=== PATIENT | female | born 1955 | race Two or more races ===

== ENCOUNTER → 2022-12-13 | Outpatient (CLI) | payer OTHER ==
[2022-12-13 09:44] LABS: Basophils # (auto) 0.1 10 ^3/uL (0-0.2); Basophils % (auto) 1.2 % (0.0-2.0); Eosinophils # (auto) 0.4 10 ^3/uL (0-0.8); Eosinophils % (auto) 4.6 % (0.0-7.0); Hematocrit 42.3 % (36.0-46.0); Hemoglobin 14.6 g/dL (12.2-16.2); Lymphocytes % (auto) 34.3 % (10.0-50.0); Mean Corpuscular Hemoglobin 31.6 pg (28.0-32.0); Mean Corpuscular Hgb Conc. 34.6 g/dL (32.0-36.0); Mean Corpuscular Volume 91.3 fL (80.0-100.0); Monocytes # (auto) 0.5 10 ^3/uL (0-1.3); Neutrophils # (auto) 4.7 10 ^3/uL (1.6-8.6); Neutrophils % (auto) 53.9 % (37.0-80.0); Nucleated Red Blood Cells % 0.2 %; Red Blood Cells 4.63 10^6/uL (4.0-5.20); Red Cell Distribution Width 12.6 % (11.8-14.3); White Blood Cell 8.7 10^3/uL (4.4-10.8)
[2022-12-13 09:51] LABS: Urine Bacteria FEW /hpf (None Seen); Urine Blood Negative /uL (Negative); Urine Mucus FEW (None Seen); Urine Specific Gravity 1.026 (1.001-1.035); Urine WBC 4 /hpf (0 - 5)
[2022-12-13 10:45] LABS: Potassium 4.2 mmol/L (3.5-5.1)
[2022-12-13 10:56] LABS: Albumin 3.9 g/dL (3.4-5.0); BUN/Creatinine Ratio 19.8 (10.0-20.0); Bilirubin, Total 0.7 mg/dL (0.2-1.0); Calcium 9.9 mg/dL (8.5-10.1); Total Protein 7.8 g/dL (6.4-8.2)
== END | disposition home or self-care (01) ==
LOC: LAB 09:23
PROVIDERS: ATTEND Student in an Organized Health Care Education/Training Program
DX: Z12.11 Encounter for screening for malignant neoplasm of colon (principal); E11.9 Type 2 diabetes mellitus without complications; I10 Essential (primary) hypertension; E03.8 Other specified hypothyroidism
CPT/HCPCS: 36415; 80053; 80061; 81001; 83036; 84439; 84443; 85025

== ENCOUNTER → 2023-03-27 | Outpatient (CLI) | payer OTHER ==
[2023-03-27 12:37] LABS: Alanine Aminotransferase 79 U/L (7-40); Albumin 4.7 g/dL (3.2-4.8); Alkaline Phosphatase 87 U/L (46-116); Anion Gap 6 (5-15); Aspartate Aminotransferase 39 U/L (13-40); BUN/Creatinine Ratio 13.6 (10.0-20.0); Blood Urea Nitrogen 11 mg/dL (9-23); Calcium 9.7 mg/dL (8.5-10.1); Carbon Dioxide 29 mmol/L (20-30); Chloride 107 mmol/L (98-107); Cholesterol 168 mg/dL (< 200); Glucose 157 mg/dL (74-106); LDL Cholesterol 101 mg/dL (< 100); Potassium 4.6 mmol/L (3.5-5.1); Sodium 142 mmol/L (136-145); Triglycerides 200 mg/dL (< 150)
[2023-03-27 12:38] LABS: Bilirubin, Total 0.6 mg/dL (0.2-1.0); HDL Cholesterol 36 mg/dL (40-59)
[2023-03-27 12:39] LABS: Total Protein 7.1 g/dL (5.7-8.2)
== END | disposition home or self-care (01) ==
LOC: LAB 11:34
DX: E78.5 Hyperlipidemia, unspecified (principal)
CPT/HCPCS: 36415; 80053; 80061; 84439; 84443

== ENCOUNTER → 2023-04-10 | Outpatient (CLI) | payer OTHER | END | disposition home or self-care (01) | LOC: XYW 13:28 | PROVIDERS: ATTEND Student in an Organized Health Care Education/Training Program | DX: I51.89 Other ill-defined heart diseases (principal); R07.9 Chest pain, unspecified | CPT/HCPCS: 93306 ==

== ENCOUNTER → 2023-05-22 | Outpatient (CLI) | payer OTHER ==
[~2023-05-22] VITALS: Ht 157.5 cm; Wt 70.3 kg
[~2023-05-22] MED LIST: ADENOSINE 59 MG in GIVE UN-DILUTED 0 ML IV ONE
== END | disposition home or self-care (01) ==
LOC: XYW 11:52
PROVIDERS: ATTEND Internal Medicine
DX: R07.9 Chest pain, unspecified (principal); E11.65 Type 2 diabetes mellitus with hyperglycemia; E78.5 Hyperlipidemia, unspecified
CPT/HCPCS: 78452; 93017; A9500; J0153

== ENCOUNTER → 2023-06-28 | Outpatient (CLI) | payer OTHER ==
[2023-06-28 12:35] LABS: Urine Epithelial Cast None Seen /hpf (<5)
[2023-06-28 12:43] LABS: Basophils # (auto) 0.1 10 ^3/uL (0-0.2); Basophils % (auto) 1.2 % (0.0-2.0); Eosinophils # (auto) 0.4 10 ^3/uL (0-0.8); Eosinophils % (auto) 5.2 % (0.0-7.0); Hemoglobin 14.5 g/dL (12.2-16.2); Lymphocytes # (auto) 2.5 10 ^3/uL (0.4-5.4); Lymphocytes % (auto) 33.1 % (10.0-50.0); Mean Corpuscular Hemoglobin 30.7 pg (28.0-32.0); Mean Corpuscular Hgb Conc. 33.8 g/dL (32.0-36.0); Mean Corpuscular Volume 90.7 fL (80.0-100.0); Monocytes # (auto) 0.5 10 ^3/uL (0-1.3); Monocytes % (auto) 6.5 % (0.0-12.0); Neutrophils # (auto) 4.1 10 ^3/uL (1.6-8.6); Nucleated Red Blood Cells % 0.1 %; Red Blood Cells 4.73 10^6/uL (4.0-5.20); Red Cell Distribution Width 12.8 % (11.8-14.3); White Blood Cell 7.6 10^3/uL (4.4-10.8)
[2023-06-28 12:59] LABS: Urine Bacteria FEW /hpf (None Seen); Urine Blood Negative /uL (Negative); Urine Clarity HAZY (Clear); Urine Color Yellow (Yellow); Urine Hyaline Cast FEW /lpf (0 - 2); Urine Mucus FEW (None Seen); Urine Protein, UAD TRACE (Negative); Urine Specific Gravity 1.024 (1.001-1.035); Urine WBC 10 /hpf (0 - 5)
[2023-06-28 13:09] LABS: Alanine Aminotransferase 79 U/L (7-40); Albumin 4.7 g/dL (3.2-4.8); Alkaline Phosphatase 78 U/L (46-116); Anion Gap 5 (5-15); Aspartate Aminotransferase 42 U/L (13-40); BUN/Creatinine Ratio 14.4 (10.0-20.0); Bilirubin, Total 0.9 mg/dL (0.2-1.0); Blood Urea Nitrogen 14 mg/dL (9-23); Calcium 10.1 mg/dL (8.5-10.1); Carbon Dioxide 29 mmol/L (20-30); Chloride 109 mmol/L (98-107); Cholesterol 180 mg/dL (< 200); Glucose 152 mg/dL (74-106); HDL Cholesterol 34 mg/dL (40-59); LDL Cholesterol 120 mg/dL (< 100); Potassium 4.7 mmol/L (3.5-5.1); Sodium 143 mmol/L (136-145); Triglycerides 183 mg/dL (< 150)
[2023-06-28 13:10] LABS: Total Protein 7.5 g/dL (5.7-8.2)
== END | disposition home or self-care (01) ==
LOC: LAB 12:23
DX: E11.9 Type 2 diabetes mellitus without complications (principal); I10 Essential (primary) hypertension; R79.89 Other specified abnormal findings of blood chemistry; E03.9 Hypothyroidism, unspecified
CPT/HCPCS: 36415; 80053; 80061; 81001; 82306; 83036; 84439; 84443; 85025

== ENCOUNTER → 2023-09-20 | Outpatient (CLI) | payer OTHER | END | disposition home or self-care (01) | LOC: LAB 14:52 | PROVIDERS: ATTEND Student in an Organized Health Care Education/Training Program | DX: Z12.11 Encounter for screening for malignant neoplasm of colon (principal); N39.0 Urinary tract infection, site not specified; E11.9 Type 2 diabetes mellitus without complications; I10 Essential (primary) hypertension; E03.9 Hypothyroidism, unspecified | CPT/HCPCS: 82274 ==

== ENCOUNTER 2023-12-31 16:59 | Emergency (ER) | payer OTHER ==
[~2023-12-31] VITALS: Ht 157.5 cm; Wt 69.7 kg
[2023-12-31 20:10] VITALS: BP 126/78; PULSE 62; RESP 16; TEMP 98.5; O2SAT 99
== END 2023-12-31 20:18 | disposition home or self-care (01) ==
LOC: ER 16:59
DX: R22.1 Localized swelling, mass and lump, neck (principal); E11.9 Type 2 diabetes mellitus without complications; I10 Essential (primary) hypertension; E03.9 Hypothyroidism, unspecified; Z88.2 Allergy status to sulfonamides; Z88.5 Allergy status to narcotic agent; Z90.49 Acquired absence of other specified parts of digestive tract
CPT/HCPCS: 76536

== ENCOUNTER → 2024-03-04 | Outpatient (CLI) | payer OTHER ==
[2024-03-04 13:54] LABS: Alanine Aminotransferase 53 U/L (7-40); Albumin 4.7 g/dL (3.2-4.8); Alkaline Phosphatase 82 U/L (46-116); Anion Gap 7 (5-15); Aspartate Aminotransferase 27 U/L (13-40); BUN/Creatinine Ratio 20.3 (10.0-20.0); Bilirubin, Total 0.7 mg/dL (0.2-1.0); Blood Urea Nitrogen 15 mg/dL (9-23); Carbon Dioxide 27 mmol/L (20-31); Chloride 108 mmol/L (98-107); Glucose 144 mg/dL (74-106); Potassium 4.5 mmol/L (3.5-5.1); Sodium 142 mmol/L (136-145); Total Protein 7.3 g/dL (5.7-8.2)
[2024-03-04 14:53] LABS: Basophils # (auto) 0.1 10 ^3/uL (0-0.2); Basophils % (auto) 0.8 % (0.0-2.0); Eosinophils # (auto) 0.7 10 ^3/uL (0-0.8); Eosinophils % (auto) 8.1 % (0.0-7.0); Hematocrit 41.6 % (36.0-46.0); Hemoglobin 14.8 g/dL (12.2-16.2); Lymphocytes # (auto) 2.9 10 ^3/uL (0.4-5.4); Lymphocytes % (auto) 33.6 % (10.0-50.0); Mean Corpuscular Hemoglobin 32.6 pg (28.0-32.0); Mean Corpuscular Hgb Conc. 35.6 g/dL (32.0-36.0); Mean Corpuscular Volume 91.6 fL (80.0-100.0); Monocytes # (auto) 0.5 10 ^3/uL (0-1.3); Monocytes % (auto) 5.9 % (0.0-12.0); Neutrophils # (auto) 4.4 10 ^3/uL (1.6-8.6); Neutrophils % (auto) 51.6 % (37.0-80.0); Nucleated Red Blood Cells % 0.1 %; Platelet Count (auto) 238 10^3/uL (140-450); Red Blood Cells 4.54 10^6/uL (4.0-5.20); Red Cell Distribution Width 13.2 % (11.8-14.3); White Blood Cell 8.5 10^3/uL (4.4-10.8)
[2024-03-04 15:42] LABS: Urine Bacteria MANY /hpf (None Seen); Urine Blood Negative /uL (Negative); Urine Clarity Turbid (Clear); Urine Color Yellow (Yellow); Urine Mucus FEW (None Seen); Urine Protein, UAD TRACE (Negative); Urine Specific Gravity 1.024 (1.001-1.035); Urine Urobilinogen Normal (Negative); Urine WBC 16 /hpf (0 - 5); Urine pH 5.5 (5.0-9.0)
== END | disposition home or self-care (01) ==
LOC: LAB 12:40
PROVIDERS: ATTEND Student in an Organized Health Care Education/Training Program
DX: I10 Essential (primary) hypertension (principal); E11.9 Type 2 diabetes mellitus without complications; E03.8 Other specified hypothyroidism
CPT/HCPCS: 36415; 80053; 81001; 83036; 84439; 84443; 85025

== ENCOUNTER → 2024-03-27 | Outpatient (CLI) | payer OTHER ==
[2024-03-27 15:37] LABS: Erythrocyte Sedimentation Rate 7 mm/hr (0-20)
[2024-03-28 08:06] LABS: Complement C3 165 mg/dL (82-167); Rheumatoid Arthritis Factor <10.0 IU/mL (<14.0)
[2024-03-28 11:07] LABS: Thyroid Peroxidase (TPO) Ab 33 IU/mL (0-34)
[2024-03-28 14:06] LABS: Anti-Nuclear Antibody Direct Negative (Negative); Anti-dsDNA Antibody <1 IU/mL (0-9); Antiscleroderma-70 Antibody <0.2 AI (0.0-0.9); RNP Antibody <0.2 AI (0.0-0.9); Sjogren's Anti-SS-A Antibody <0.2 AI (0.0-0.9); Sjogren's Anti-SS-B Antibody <0.2 AI (0.0-0.9); Smith Antibody <0.2 AI (0.0-0.9)
== END | disposition home or self-care (01) ==
LOC: LAB 14:44
PROVIDERS: ATTEND Student in an Organized Health Care Education/Training Program
DX: M25.50 Pain in unspecified joint (principal)
CPT/HCPCS: 36415; 84550; 85652; 86160; 86225; 86235; 86376; 86431

== ENCOUNTER → 2024-08-12 | Outpatient (CLI) | payer OTHER ==
[2024-08-12 12:22] LABS: Urine Bacteria None Seen /hpf (None Seen)
[2024-08-12 12:28] LABS: Basophils # (auto) 0.1 10 ^3/uL (0-0.2); Basophils % (auto) 1.2 % (0.0-2.0); Eosinophils # (auto) 0.5 10 ^3/uL (0-0.8); Eosinophils % (auto) 6.3 % (0.0-7.0); Hematocrit 44.7 % (36.0-46.0); Hemoglobin 14.9 g/dL (12.2-16.2); Lymphocytes # (auto) 2.7 10 ^3/uL (0.4-5.4); Lymphocytes % (auto) 36.7 % (10.0-50.0); Mean Corpuscular Hemoglobin 30.9 pg (28.0-32.0); Mean Corpuscular Hgb Conc. 33.3 g/dL (32.0-36.0); Monocytes # (auto) 0.4 10 ^3/uL (0-1.3); Monocytes % (auto) 6.2 % (0.0-12.0); Neutrophils # (auto) 3.6 10 ^3/uL (1.6-8.6); Neutrophils % (auto) 49.6 % (37.0-80.0); Platelet Count (auto) 260 10^3/uL (140-450); Red Blood Cells 4.81 10^6/uL (4.0-5.20); Red Cell Distribution Width 12.5 % (11.8-14.3); White Blood Cell 7.3 10^3/uL (4.4-10.8)
[2024-08-12 12:48] LABS: Urine Blood Negative /uL (Negative); Urine Clarity Clear (Clear); Urine Color Yellow (Yellow); Urine Mucus FEW (None Seen); Urine Protein, UAD Negative (Negative); Urine Specific Gravity 1.018 (1.001-1.035); Urine Squamous Epithelial Cell FEW /hpf (<5); Urine Urobilinogen Normal (Negative); Urine WBC 2 /HPF (0-5)
[2024-08-12 12:53] LABS: Alkaline Phosphatase 69 U/L (46-116); Anion Gap 8 (5-15); Aspartate Aminotransferase 35 U/L (13-40); BUN/Creatinine Ratio 13.6 (10.0-20.0); Blood Urea Nitrogen 12 mg/dL (9-23); Calcium 10.1 mg/dL (8.7-10.4); Carbon Dioxide 27 mmol/L (20-31); Potassium 4.7 mmol/L (3.5-5.1); Sodium 142 mmol/L (136-145); Total Protein 7.5 g/dL (5.7-8.2)
[2024-08-12 12:54] LABS: Bilirubin, Total 0.7 mg/dL (0.2-1.0)
[2024-08-12 12:56] LABS: Alanine Aminotransferase 53 U/L (7-40); Albumin 4.9 g/dL (3.2-4.8); Chloride 107 mmol/L (98-107); Cholesterol 212 mg/dL (< 200); Glucose 142 mg/dL (74-106); HDL Cholesterol 35 mg/dL (40-59); LDL Cholesterol 151 mg/dL (< 100); Triglycerides 189 mg/dL (< 150)
[2024-08-12 13:08] LABS: Creatinine, Urine 150.89 mg/dL (30.0-125.0)
== END | disposition home or self-care (01) ==
LOC: LAB 12:09
PROVIDERS: ATTEND Student in an Organized Health Care Education/Training Program
DX: Z12.11 Encounter for screening for malignant neoplasm of colon (principal); I10 Essential (primary) hypertension; E11.9 Type 2 diabetes mellitus without complications
CPT/HCPCS: 36415; 80053; 80061; 81001; 82043; 82570; 83036; 84443; 85025

== ENCOUNTER → 2025-01-16 | Outpatient (CLI) | payer OTHER ==
[2025-01-16 15:28] LABS: Hematocrit 46.3 % (36.0-46.0); Hemoglobin 16.1 g/dL (12.2-16.2); Mean Corpuscular Hemoglobin 31.3 pg (28.0-32.0); Mean Corpuscular Volume 89.9 fL (80.0-100.0); Nucleated Red Blood Cells % 0.2 %
[2025-01-16 15:30] LABS: Urine Budding Yeast FEW /hpf (None Seen); Urine Protein, UAD TRACE (Negative)
[2025-01-16 15:50] LABS: Alkaline Phosphatase 89 U/L (46-116); Anion Gap 8 (5-15); BUN/Creatinine Ratio 11.0 (10.0-20.0); Bilirubin, Total 1.0 mg/dL (0.2-1.0); Blood Urea Nitrogen 10 mg/dL (9-23); Calcium 9.9 mg/dL (8.7-10.4); Carbon Dioxide 29 mmol/L (20-31); Chloride 105 mmol/L (98-107); Potassium 5.0 mmol/L (3.5-5.1); Sodium 142 mmol/L (136-145); Total Protein 7.4 g/dL (5.7-8.2)
[2025-01-16 15:53] LABS: Alanine Aminotransferase 63 U/L (7-40); Albumin 4.9 g/dL (3.2-4.8); Cholesterol 234 mg/dL (< 200); Glucose 124 mg/dL (74-106); HDL Cholesterol 30 mg/dL (40-59); Triglycerides 277 mg/dL (< 150)
== END | disposition home or self-care (01) ==
LOC: LAB 15:05
PROVIDERS: ATTEND Student in an Organized Health Care Education/Training Program
DX: I10 Essential (primary) hypertension (principal); E11.9 Type 2 diabetes mellitus without complications; E03.8 Other specified hypothyroidism; Z12.11 Encounter for screening for malignant neoplasm of colon
CPT/HCPCS: 36415; 80053; 80061; 81001; 83036; 84439; 84443; 85025

== ENCOUNTER 2025-01-27 14:51 | Outpatient (CLI) | payer OTHER ==
[2025-01-27 15:15] LABS: Urine Protein, UAD TRACE (Negative)
== END 2025-01-27 17:00 | disposition home or self-care (01) ==
LOC: LAB 14:51
PROVIDERS: ATTEND Nurse Practitioner Family
DX: N39.0 Urinary tract infection, site not specified (principal)
CPT/HCPCS: 81001; 87086

== ENCOUNTER 2025-02-13 13:37 | Inpatient (IN) | payer OTHER ==
[~2025-02-13] VITALS: Ht 157.5 cm; Wt 68.8 kg
--- NOTE | 2025-02-13 14:27 | ED.PDOC ---
General HPI Comments 69 y.o female presents to the ED for a chief complaint of back pain radiating to bilateral flank region that started a couple weeks ago. Patient reports 2weeks ago she was seen at the ER for pain, states she was given pain medication via IM route and tested for a UTI via UA but tested negative. Patient continued to have pain despite medication, states it worsens with exertion, bending, and twisting. She mentioned 2 weeks ago did have hematuria and dysuria but has seen resolved. She denies any fever, chills, nausea, vomiting, abdominal pain. Chief Complaint: Flank Pain Time Seen by MD: 14:09 Reviewed notes: Nurses Notes, Medications, Allergies Allergies: Coded Allergies: Sulfa Antibiotics (Verified Allergy, Mild, 05/22/23) Uncoded Allergies: Codiene (Allergy, Mild, 05/22/23) Information Source: Patient Mode of Arrival: Ambulatory Severity: Moderate Timing: Weeks Duration: Since onset Onset: Spontaneous Symptoms: None History of: None Location: (R) Flank, (L)Flank associated signs and symptoms: Flank Pain, Back Pain Past Medical History PAST MEDICAL HISTORY: DM, HTN, Thyroid Surgical History: Appendectomy, Cholecystectomy Family History Family History: Reviewed,noncontributory to illness, No family hx of Cancer, No family hx of DM, No family hx of Heart luther, No family hx of HTN, No family hx ofKidney luther, No family hx of Liver luther, No family hx of Lung luther, No family hx of Stroke Social History Smoker: Non-Smoker Alcohol: Denies ETOH Use Drugs: Denies Drug Use Lives In: Home Constitutional: denies: chills, diaphoresis, fatigue, fever, malaise, sweats, weakness, others EENTM: denies: blurred vision, double vision, ear bleeding, ear discharge, ear drainage, ear pain, ear ringing, eye pain, eye redness, hearing loss, mouth pain, mouth swelling, nasal discharge, nose bleeding, nose congestion, nose pain, photophobia, tearing, throat pain, throat swelling, voice changes, others Respiratory: denies: cough, hemoptysis, orthopnea, SOB at rest, shortness of breath, SOB with excertion, stridor, wheezing, others Cardiovascular: denies: chest pain, dizzy spells, diaphoresis, Dyspnea on exertion, edema, irregular heart beat, left arm pain, lightheadedness, palpitations, PND, syncope, others Gastrointestinal: denies: abdomen distended, abdominal pain, blood streaked bowels, constipated, diarrhea, dysphagia, difficulty swallowing, hematemesis, melena, nausea, poor appetite, poor fluid intake, rectal bleeding, rectal pain, vomiting, others Genitourinary: reports: flank pain; denies: abnormal vagina bleeding, burning, dyspareunia, dysuria, frequency, hematuria, incontinence, pain, , vagina discharge, urgency, others Neurological: denies: dizziness, fainting, headache, left sided numbness, left sided weakness, numbness, paresthesia, pre-existing deficit, right sided numbness, right sided weakness, seizure, speech problems, tingling, tremors, weakness, others Musculoskeletal: reports: back pain; denies: gout, joint pain, joint swelling, muscle pain, muscle stiffness, neck pain, others Integumetry: denies: bruises, change in color, change in hair/nails, dryness, laceration, lesions, lumps, rash, wounds, others Allergic/Immunocompromised: denies: Difficulty Healing, Frequent Infections, Hives, Itching, others Hematologic/Lymphatic: denies: anemia, blood clots, easy bleeding, easy bruising, swollen glands, others Endocrine: denies: excessive hunger, excessive sweating, excessive thirst, excessive urination, flushing, intolerance to cold, intolerance to heat, unexplained weight gain, unexplained weight loss, others Psychiatric: denies: anxiety, bipolar disorder, depression, hopeless, panic disorder, schizophrenia, sleepless, suicidal, others All Other Systems: Reviewed and Negative Physical Exam General Appearance: Moderate Distress, Normal HEENT: Normal ENT Inspection, Pharynx Normal, TMs Normal Neck: Full Range of Motion, Non-Tender, Normal, Normal Inspection Respiratory: Chest Non-Tender, Lungs Clear, No Accessory Muscle Use, No Respiratory Distress, Normal Breath Sounds Cardiovascular: No Edema, No JVD, No Murmur, No Gallop, Normal Peripheral Pulses, Regular Rate/Rhythm Breast Exam: Deferred Gastrointestinal: No Organomegaly, Non Tender, No Pulsatile Mass, Normal Bowel Sounds, Soft Genitalia: Deferred Pelvic: Deferred Rectal: Deferred Extremities: No calf tenderness, Normal capillary refill, Normal inspection, Normal range of motion, Non-tender, No pedal edema Musculoskeletal : Apperance: Normal Neurologic: Alert, drive in teller II-XII nml as Tested, No Motor Deficits, Normal Affect, Normal Mood, No Sensory Deficits Cerebellar Function: Normal Reflexes: Normal Skin: Dry, Normal Color, Warm Peripheral Pulses: 3+ Radial (R), 3+ Radial (L) Lymphatic: No Adenopathy Was a procedure done? Was a procedure done?: No Differential Diagnosis Kidney stone (Female): Musculoskeletal pain, Pancreatitis, Strain, Urinary obstruction X-Ray, Labs, Meds, VS Vital Signs Date Time Temp Pulse Resp B/P (MAP) Pulse Ox O2 Delivery O2 Flow Rate FiO2 02/13/25 13:41 97.7 73 13 110/64 95 97.7 Lab Test 02/13/25 15:06 02/13/25 14:13 Range/Units White Blood Count 13.0 H 4.4-10.8 10^3/uL Red Blood Count 4.75 4.0-5.20 10^6/uL Hemoglobin 14.7 12.2-16.2 g/dL Hematocrit 43.1 36.0-46.0 % Mean Corpuscular Volume 90.7 80.0-100.0 fL Mean Corpuscular Hemoglobin 30.9 28.0-32.0 pg Mean Corpuscular Hemoglobin Concent 34.1 32.0-36.0 g/dL Red Cell Distribution Width 13.1 11.8-14.3 % Platelet Count 266 140-450 10^3/uL Mean Platelet Volume 9.6 6.9-10.8 fL Neutrophils (%) (Auto) 61.9 37.0-80.0 % Lymphocytes (%) (Auto) 28.9 10.0-50.0 % Monocytes (%) (Auto) 6.3 0.0-12.0 % Eosinophils (%) (Auto) 1.5 0.0-7.0 % Basophils (%) (Auto) 1.4 0.0-2.0 % Neutrophils # (Auto) 8.1 1.6-8.6 10 ^3/uL Lymphocytes # (Auto) 3.8 0.4-5.4 10 ^3/uL Monocytes # (Auto) 0.8 0-1.3 10 ^3/uL Eosinophils # (Auto) 0.2 0-0.8 10 ^3/uL Basophils # (Auto) 0.2 0-0.2 10 ^3/uL Nucleated Red Blood Cells 0.2 % Sodium Level 144 136-145 mmol/L Potassium Level 4.9 3.5-5.1 mmol/L Chloride Level 107 98-107 mmol/L Carbon Dioxide Level 28 20-31 mmol/L Anion Gap 9 5-15 Blood Urea Nitrogen 17 9-23 mg/dL Creatinine 0.85 0.550-1.02 mg/dL Glomerular Filtration Rate Calc 75 >90 mL/min BUN/Creatinine Ratio 20.0 10.0-20.0 Serum Glucose 135 H 74-106 mg/dL Calcium Level 9.8 8.7-10.4 mg/dL Urine Color Yellow Yellow Urine Clarity Turbid H Clear Urine pH 5.5 5.0-9.0 Urine Specific [place] 1.023 1.001-1.035 Urine Protein Negative Negative Urine Ketones Negative Negative Urine Blood Negative Negative /uL Urine Nitrite Negative Negative Urine Bilirubin Negative Negative Urine Urobilinogen Normal Negative mg/dL Urine Leukocyte Esterase 2+ Negative /uL Urine RBC 4 0 - 4 /hpf Urine Microscopic WBC 19 H 0-5 /HPF Urine Squamous Epithelial Cells Many <5 /hpf Urine Bacteria Few H None Seen /hpf Urine Mucus Few None Seen Urine Glucose Normal Normal mg/dL Patient alert. Vitals stable. Answering all questions. Ambulating. No leg swelling. No calf tenderness. No shortness a breath. Urinalysis shows UTI. WBC slightly elevated. Was given prescription of Keflex antibiotic. Was told to follow up with her primary care physician. Was told to come back if there is any problem. Time of 1ST Reevaluation: 14:27 Reevaluation 1ST: Unchanged Patient Education/Counseling: Diagnosis, Treatment, Prognosis Family Education/Counseling: No Family Present SEPSIS Sepsis Screen Date sepsis recognized/suspect: Feb 13, 2025 Time Sepsis recognized/suspect: 1341 Recent Procedure: No On Antibiotic Therapy: No Respiratory Rate >20: No Heart Rate >90: No Temp<36 C (96.8 F) or >38.3 C: No SBP <90 or MAP <65 mmHG: No New Acute Mental Status Change: No Is the patient on CPAP, BIPAP,: No Physician Orders Ct Ab Pel Wo Con-No Oral Or Iv (02/13/25 14:43) Vital Signs Date Time Temp Pulse Resp B/P (MAP) Pulse Ox O2 Delivery O2 Flow Rate FiO2 02/13/25 13:41 97.7 73 13 110/64 95 97.7 Laboratory Tests Test 02/13/25 15:06 White Blood Count 13.0 10^3/uL (4.4-10.8) H Departure 1 Departure Time of Disposition: 18:40 Impression: Primary Impression: Urinary tract infection Qualified Codes: N30.00 - Acute cystitis without hematuria Disposition: ADMITTED INPATIENT Admit to: Med Surg Condition: Guarded e-Prescriptions Cephalexin (KEFLEX CAPSULE) 250 Mg Cp 250 MG PO QID for 7 Days, #28 BOTTLE Prov: FIORDALIZA MCFADDEN MD 02/13/25 Critical Care Note Critical Care Time?: No Stability Stability form required: No I personally scribed for FIORDALIZA MCFADDEN MD ([email or web address]) on 02/13/25 at 14:27. Electronically submitted by Fatemeh Robbins ([facility]). FIORDALIZA MCFADDEN MD Feb 13, 2025 14:27
[2025-02-13 15:17] LABS: Hematocrit 43.1 % (36.0-46.0); Hemoglobin 14.7 g/dL (12.2-16.2); Mean Corpuscular Hemoglobin 30.9 pg (28.0-32.0); Mean Corpuscular Volume 90.7 fL (80.0-100.0); Nucleated Red Blood Cells % 0.2 %
[2025-02-13 15:24] LABS: Potassium 4.9 mmol/L (3.5-5.1); Sodium 144 mmol/L (136-145)
[2025-02-13 15:25] LABS: Anion Gap 9 (5-15); Calcium 9.8 mg/dL (8.7-10.4); Carbon Dioxide 28 mmol/L (20-31)
[2025-02-13 15:25] LABS: Urine Protein, UAD Negative (Negative)
[2025-02-13 15:30] LABS: Chloride 107 mmol/L (98-107)
[2025-02-13 15:31] LABS: BUN/Creatinine Ratio 20.0 (10.0-20.0); Blood Urea Nitrogen 17 mg/dL (9-23); Glucose 135 mg/dL (74-106)
--- NOTE | 2025-02-13 15:51 | DVH ---
Indication: stone Technique: CT axial images of the abdomen and pelvis are obtained without contrast. Coronal and sagit eleazar reformats were obtained. Radiation Dose Information: CTDI volume is 10 mGy. Dose-length product is 557 mGy*cm Comparison: None FINDINGS: There is limited interpretation of the abdomen and pelvis without administration of intravenous contr ast. Lung bases demonstrate atelectasis. Adrenal glands, spleen, pancreas unremarkable in shape. Cholecystectomy liver unremarkable in shape. The kidneys demonstrate no hydronephrosis / nephrolithiasis. Stomach partially distended. Small bowel loops are normal in caliber. Colonic diverticula. Moderate to large volume stool within the colon. Appendix removed. Abdominal aortic atherosclerotic disease. Bladder partially distended. No free pelvic fluid. No ingui nal lymphadenopathy. Moderate thoracolumbar degenerative disc disease. IMPRESSION: Limited evaluation without contrast. No hydronephrosis/ nephrolithiasis. Cholecystectomy. Moderate to large volume stool within the colon. Colonic diverticular disease. Other findings as described.
[2025-02-13] MEDS ORDERED: CEPH250C PO (18:41)
--- NOTE | 2025-02-13 20:10 | DVHHP2 ---
History of Present Illness Reason for Visit: Complicated Cystitis History of Present Illness Patient is a 69 y.o female with a PMHx of DM2 and Dyslipidemia who presented to the ED for a chief complaint of back pain radiating to bilateral flank region with burning of urine that started a couple weeks ago. Patient was on Keflex at home with no improvement. Patient denies fevers, chills, SOB, or any other complaints. Past Medical History See HPI Review of Systems Constitutional: No: Fever, Chills, Sweats, Weakness, Malaise, Other Eyes: No: Pain, Vision change, Conjunctivae inflammation, Eyelid inflammation, Other, Redness ENT: No: Ear pain, Ear discharge, Nose pain, Nose discharge, Nose congestion, Mouth pain, Mouth swelling, Throat pain, Throat swelling, Other Respiratory: No: Cough, Dry, Shortness of breath, SOB with excertion, Wheezing, Hemoptysis, Pleuritic Pain, Sputum, Wheezing, Other Cardiovascular: No: Chest Pain, Palpitations, Orthopnea, Paroxysmal Noc. Dyspnea, Edema, Lt Headedness, Other Gastrointestinal: Nausea, Abdominal Pain Genitourinary: Dysuria Musculoskeletal: No: other, neck pain, shoulder pain, arm pain, back pain, hand pain, leg pain, foot pain Skin: No: Rash, Lesions, Jaundice, Bruising, Other Neurological: No: Weakness, Numbness, Incoordination, Change in speech, Confusion, Seizures, Other Allergies: Coded Allergies: Sulfa Antibiotics (Verified Allergy, Mild, 05/22/23) Uncoded Allergies: Codiene (Allergy, Mild, 05/22/23) Exam Vital Signs Vital Signs Date Time Temp Pulse Resp B/P (MAP) Pulse Ox O2 Delivery O2 Flow Rate FiO2 02/13/25 13:41 97.7 73 13 110/64 95 97.7 General Appearance: Alert, Oriented X3, Cooperative, No acute distress HEENT: Atraumatic Respiratory: Clear to auscultation Cardiovascular: Regular rate, Normal S1, Normal S2 Abdominal: Normal bowel sounds Extremities: No clubbing Psych/Mental Status: Mental status NL Labs/Xrays Labs Test 02/13/25 15:06 02/13/25 14:13 Range/Units White Blood Count 13.0 H 4.4-10.8 10^3/uL Red Blood Count 4.75 4.0-5.20 10^6/uL Hemoglobin 14.7 12.2-16.2 g/dL Hematocrit 43.1 36.0-46.0 % Mean Corpuscular Volume 90.7 80.0-100.0 fL Mean Corpuscular Hemoglobin 30.9 28.0-32.0 pg Mean Corpuscular Hemoglobin Concent 34.1 32.0-36.0 g/dL Red Cell Distribution Width 13.1 11.8-14.3 % Platelet Count 266 140-450 10^3/uL Mean Platelet Volume 9.6 6.9-10.8 fL Neutrophils (%) (Auto) 61.9 37.0-80.0 % Lymphocytes (%) (Auto) 28.9 10.0-50.0 % Monocytes (%) (Auto) 6.3 0.0-12.0 % Eosinophils (%) (Auto) 1.5 0.0-7.0 % Basophils (%) (Auto) 1.4 0.0-2.0 % Neutrophils # (Auto) 8.1 1.6-8.6 10 ^3/uL Lymphocytes # (Auto) 3.8 0.4-5.4 10 ^3/uL Monocytes # (Auto) 0.8 0-1.3 10 ^3/uL Eosinophils # (Auto) 0.2 0-0.8 10 ^3/uL Basophils # (Auto) 0.2 0-0.2 10 ^3/uL Nucleated Red Blood Cells 0.2 % Sodium Level 144 136-145 mmol/L Potassium Level 4.9 3.5-5.1 mmol/L Chloride Level 107 98-107 mmol/L Carbon Dioxide Level 28 20-31 mmol/L Anion Gap 9 5-15 Blood Urea Nitrogen 17 9-23 mg/dL Creatinine 0.85 0.550-1.02 mg/dL Glomerular Filtration Rate Calc 75 >90 mL/min BUN/Creatinine Ratio 20.0 10.0-20.0 Serum Glucose 135 H 74-106 mg/dL Calcium Level 9.8 8.7-10.4 mg/dL Urine Color Yellow Yellow Urine Clarity Turbid H Clear Urine pH 5.5 5.0-9.0 Urine Specific [place] 1.023 1.001-1.035 Urine Protein Negative Negative Urine Ketones Negative Negative Urine Blood Negative Negative /uL Urine Nitrite Negative Negative Urine Bilirubin Negative Negative Urine Urobilinogen Normal Negative mg/dL Urine Leukocyte Esterase 2+ Negative /uL Urine RBC 4 0 - 4 /hpf Urine Microscopic WBC 19 H 0-5 /HPF Urine Squamous Epithelial Cells Many <5 /hpf Urine Bacteria Few H None Seen /hpf Urine Mucus Few None Seen Urine Glucose Normal Normal mg/dL SEPSIS Sepsis Screen Date sepsis recognized/suspect: Feb 13, 2025 Time Sepsis recognized/suspect: 1340 Recent Procedure: No On Antibiotic Therapy: No Respiratory Rate >20: No Heart Rate >90: No Temp<36 C (96.8 F) or >38.3 C: No SBP <90 or MAP <65 mmHG: No New Acute Mental Status Change: No Is the patient on CPAP, BIPAP,: No Physician Orders Ct Ab Pel Wo Con-No Oral Or Iv (02/13/25 14:43) Lactulose Oral (02/13/25 20:15) Bisacodyl Ec Tablet (Dulcolax Ec Tablet) (02/13/25 20:15) Ceftriaxone Ivpb Rocephin (02/14/25 09:00) NS (02/13/25 20:15) Tamsulosin Hydrochloride (Flomax) (02/13/25 20:15) Admit (02/13/25 20:03) Code Status (02/13/25 20:03) Vital Signs .PER UNIT PROTOCOL (02/13/25 20:03) Review Orders With Adm. (02/13/25 20:03) Consistent Carb(Ccho)Diabetes (02/14/25 Breakfast) Lorazepam Tablet (Ativan Tablet) (02/13/25 20:15) Alum & Mag Hydrox-Simethicone (Maalox Pl (02/13/25 20:15) Acetaminophen Tablet (Tylenol Tablet) (02/13/25 20:15) Notify Md Of Changes From Base (02/13/25 20:03) Advance Directive (02/13/25 20:03) Patient Condition (02/13/25 20:03) Allergies (02/13/25 20:03) Hydrocodone-Acet 5/325mg Tab (Pruden 5/32 (02/13/25 20:15) Hydromorphone Injection (Dilaudid Inject (02/13/25 20:15) Ondansetron Hcl (Zofran) (02/13/25 20:15) Glucose Blood (Accu-Chek Comfort Curve T (02/13/25 22:00) Bedtime Insulin Scale (02/13/25 22:00) Moderate Insulin Ss (02/14/25 07:00) Dextrose 50% Syringe (02/13/25 20:15) Complete Blood Count (02/14/25 04:00) Basic Metabolic Panel (02/14/25 04:00) Magnesium (02/14/25 04:00) Vital Signs Date Time Temp Pulse Resp B/P (MAP) Pulse Ox O2 Delivery O2 Flow Rate FiO2 02/13/25 13:41 97.7 73 13 110/64 95 97.7 Laboratory Tests Test 02/13/25 15:06 White Blood Count 13.0 10^3/uL (4.4-10.8) H Assessment/Plan Assessment/Plan # Complicated Cystitis - Rocephin - NS IVF # DM2 A1c 7.2 - SSI # Constipation - Lactulose and Dulcolax # Goals of care FULL CODE Plan discussed with: Patient My Orders Orders - JOSE CHIANG MD Procedure Category Date Status Time Lactulose Oral PHA 02/13/25 Verified 20:15 Bisacodyl Ec Tablet PHA 02/13/25 Verified (Dulcolax Ec Tablet) 20:15 Ceftriaxone Ivpb PHA 02/14/25 Verified Rocephin 09:00 NS PHA 02/13/25 Verified 20:15 Tamsulosin PHA 02/13/25 Verified Hydrochloride (Flomax) 20:15 Admit ADMIT 02/13/25 Verified 20:03 Code Status CODE 02/13/25 Verified 20:03 Vital Signs [facility] 02/13/25 Verified 20:03 Review Orders With [facility] 02/13/25 Verified Adm. 20:03 Consistent DIET 02/14/25 Verified Carb(Ccho)Diabetes Breakfast Lorazepam Tablet PHA 02/13/25 Verified (Ativan Tablet) 20:15 Alum & Mag PHA 02/13/25 Verified Hydrox-Simethicone 20:15 Acetaminophen Tablet PHA 02/13/25 Verified (Tylenol Tablet) 20:15 Notify Of Changes [facility] 02/13/25 Verified From Base 20:03 Advance Directive [facility] 02/13/25 Verified 20:03 Patient Condition ORDERS 02/13/25 Verified 20:03 Allergies [facility] 02/13/25 Verified 20:03 Hydrocodone-Acet PHA 02/13/25 Verified 5/325mg Tab (Pruden 20:15 Hydromorphone PHA 02/13/25 Verified Injection (Dilaudid 20:15 Ondansetron Hcl PHA 02/13/25 Verified (Zofran) 20:15 Glucose Blood PHA 02/13/25 Verified (Accu-Chek Comfort 22:00 Bedtime Insulin Scale PHA 02/13/25 Verified 22:00 Moderate Insulin Ss PHA 02/14/25 Verified 07:00 Dextrose 50% Syringe PHA 02/13/25 Verified 20:15 Complete Blood Count LAB 02/14/25 Verified 04:00 Basic Metabolic Panel LAB 02/14/25 Verified 04:00 Magnesium LAB 02/14/25 Verified 04:00 Date of Service: Feb 13, 2025 Billing Provider: JOSE CHIANG MD Common Visit Codes: 73995-NADPBIX INP/OBS CARE (HIGH) Secondary Visit Codes: 25830-[id number] CARE PLAN 30 MINUTES JOSE CHIANG MD Feb 13, 2025 20:10
[2025-02-13] MEDS ORDERED: HYDROmorphone HCL 2 MG/ML VL/or syr IV PRN (20:15)
[2025-02-13] MEDS: SODIUM CHLORIDE 0.9% 1,000 ML IV SCH (20:15)
[2025-02-13] MEDS ORDERED: LORazepam 0.5 MG TAB PO PRN (20:15)
[2025-02-13] MEDS ORDERED: ACETAMINOPHEN 325 MG TAB PO PRN (20:15)
[2025-02-13] MEDS: LACTULOSE 20Gm/30ML SOLN PO ONE (20:15)
[2025-02-13] MEDS: TAMSULOSIN HYDROCHLORIDE 0.4 MG CAP PO ONE (20:15)
[2025-02-13] MEDS: BISACODYL 5 MG EC TAB PO ONE (20:15)
[2025-02-13] MEDS ORDERED: ONDANSETRON HCL 4 MG/2 ML VIAL IV PRN (20:15)
[2025-02-13] MEDS ORDERED: DEXTROSE (50%) 50ML SYRG IV PRN (20:15)
[2025-02-13] MEDS ORDERED: MAALOX PLUS or MAALOX 30 ML PO PRN (20:15)
[2025-02-13 21:49] VITALS: PULSE 64; RESP 20; O2SAT 97
[2025-02-14] MEDS: InsuLIN REG 1unit/0.01ml Soln (100units/ml) SC SCH ×2 (00:33→06:04)
[2025-02-14] MEDS: ACCU-CHEK COMFORT CURVE STRIP VI SCH (00:34)
[2025-02-14 00:40] VITALS: BP 140/81; PULSE 67; RESP 18; TEMP 97.7; O2SAT 97
[2025-02-14 00:50] VITALS: PULSE 67; RESP 18; O2SAT 97
[2025-02-14] MEDS: HYDROcodone-ACET 5/325MG TAB PO PRN (01:11)
[2025-02-14 02:11] VITALS: BP 140/81; PULSE 67; RESP 18; TEMP 97.7; O2SAT 97
[2025-02-14 05:00] VITALS: BP 130/73; PULSE 55; RESP 17; TEMP 97.6; O2SAT 97
[2025-02-14 06:41] LABS: Hematocrit 40.4 % (36.0-46.0); Hemoglobin 14.1 g/dL (12.2-16.2); Mean Corpuscular Hemoglobin 31.5 pg (28.0-32.0); Mean Corpuscular Volume 90.2 fL (80.0-100.0); Nucleated Red Blood Cells % 0.0 %
[2025-02-14 06:53] LABS: Anion Gap 11 (5-15); Carbon Dioxide 27 mmol/L (20-31); Potassium 4.0 mmol/L (3.5-5.1)
[2025-02-14 06:54] LABS: Calcium 9.3 mg/dL (8.7-10.4)
[2025-02-14 07:00] LABS: BUN/Creatinine Ratio 19.7 (10.0-20.0); Blood Urea Nitrogen 13 mg/dL (9-23); Chloride 107 mmol/L (98-107); Glucose 89 mg/dL (74-106); Magnesium 2.1 mg/dL (1.6-2.6); Sodium 145 mmol/L (136-145)
[2025-02-14] MEDS ORDERED: IBUP1TAB5 PO (08:51)
[2025-02-14] MEDS ORDERED: PANT40TA2 PO (08:51)
[2025-02-14] MEDS ORDERED: NITR-87 PO (08:55)
--- NOTE | 2025-02-14 08:56 | DVHDSRES ---
Discharge Summary Date of Admission Resident Creating Document: ROCÍO ANTONIO RESIDENT Feb 13, 2025 at 20:03 Date of Discharge: Feb 14, 2025 Admitting Diagnosis Complicated cystitis Labs/Diagnostic Data: Laboratory Results Test 02/14/25 05:28 02/14/25 00:30 02/13/25 14:13 White Blood Count 10.3 10^3/uL (4.4-10.8) Red Blood Count 4.48 10^6/uL (4.0-5.20) Hemoglobin 14.1 g/dL (12.2-16.2) Hematocrit 40.4 % (36.0-46.0) Mean Corpuscular Volume 90.2 fL (80.0-100.0) Mean Corpuscular Hemoglobin 31.5 pg (28.0-32.0) Mean Corpuscular Hemoglobin Concent 35.0 g/dL (32.0-36.0) Red Cell Distribution Width 12.6 % (11.8-14.3) Platelet Count 228 10^3/uL (140-450) Mean Platelet Volume 9.8 fL (6.9-10.8) Neutrophils (%) (Auto) 55.1 % (37.0-80.0) Lymphocytes (%) (Auto) 35.5 % (10.0-50.0) Monocytes (%) (Auto) 6.4 % (0.0-12.0) Eosinophils (%) (Auto) 2.2 % (0.0-7.0) Basophils (%) (Auto) 0.8 % (0.0-2.0) Neutrophils # (Auto) 5.7 10 ^3/uL (1.6-8.6) Lymphocytes # (Auto) 3.6 10 ^3/uL (0.4-5.4) Monocytes # (Auto) 0.7 10 ^3/uL (0-1.3) Eosinophils # (Auto) 0.2 10 ^3/uL (0-0.8) Basophils # (Auto) 0.1 10 ^3/uL (0-0.2) Nucleated Red Blood Cells 0.0 % Sodium Level 145 mmol/L (136-145) Potassium Level 4.0 mmol/L (3.5-5.1) Chloride Level 107 mmol/L (98-107) Carbon Dioxide Level 27 mmol/L (20-31) Anion Gap 11 (5-15) Blood Urea Nitrogen 13 mg/dL (9-23) Creatinine 0.66 mg/dL (0.550-1.02) Glomerular Filtration Rate Calc 96 mL/min (>90) BUN/Creatinine Ratio 19.7 (10.0-20.0) Serum Glucose 89 mg/dL (74-106) Calcium Level 9.3 mg/dL (8.7-10.4) Magnesium Level 2.1 mg/dL (1.6-2.6) POC Glucose 285 mg/dl (70-106) Urine Color Yellow (Yellow) Urine Clarity Turbid (Clear) Urine pH 5.5 (5.0-9.0) Urine Specific [place] 1.023 (1.001-1.035) Urine Protein Negative (Negative) Urine Ketones Negative (Negative) Urine Blood Negative /uL (Negative) Urine Nitrite Negative (Negative) Urine Bilirubin Negative (Negative) Urine Urobilinogen Normal mg/dL (Negative) Urine Leukocyte Esterase 2+ /uL (Negative) Urine RBC 4 /hpf (0 - 4) Urine Microscopic WBC 19 /HPF (0-5) Urine Squamous Epithelial Cells Many /hpf (<5) Urine Bacteria Few /hpf (None Seen) Urine Mucus Few (None Seen) Urine Glucose Normal mg/dL (Normal) Other Laboratory Tests 02/14/25 05:28 Brief Hx & Hospital Course: The patient is a 69-year-old female with a past medical history of type 2 diabetes mellitus and dyslipidemia who presented to the emergency department with complaints of back pain radiating to the bilateral flank region, accompanied by burning with urination that began approximately two weeks ago. She had been taking Keflex at home without symptomatic improvement. She denied fever, chills, shortness of breath, or any other associated symptoms. Urinalysis was consistent with a urinary tract infection. The patient was treated in the ED with intravenous Rocephin and IV fluids, after which she reported feeling better. She is being discharged in stable condition with a prescription for Nitrofurantoin 100 mg to be taken twice daily for seven days. Follow-up with her primary care provider is recommended within 1 to 2 weeks. GENERAL: Not in acute distress. HEENT: EOMI, Moist mucous membranes. No scleral icterus. No cervical lymphadenopathy. LUNGS: Clear to auscultation bilaterally. No accessory muscle use. CARDIOVASCULAR: Regular rate and rhythm. No murmur. No JVD. ABDOMEN: Soft, nontender and nondistended. No palpable masses. EXTREMITIES: No edema. Nontender. SKIN: No rashes or lesions. Warm. NEUROLOGIC: Alert and oriented X3 Condition at Discharge: Stable Final Diagnosis/Problems List # acute Complicated Cystitis # DM2 A1c 7.2 # Constipation Discharge Disposition: Home SNF Discharge Will this Physician continue t: No Discharge Instruct/Medications Diet: Consistent carbohydrate Activity: No Restrictions, As Tolerated Follow Up/Referral: Follow up with primary care in 1-2 weeks Medications: Macrobid 100 mg b.i.d. x7 days Resume home medications Scheduled Nitrofurantoin Monohydrate Mac (Macrobid), 100 MG PO BID Pantoprazole Sodium Sesquihydr (Protonix), 40 MG PO DAILY Scheduled PRN Ibuprofen Micronized (Ibuprofen), 600 MG PO Q8HPRN PRN Discharge Statement: "Patient was advised to return to the ER or call 911 if any headaches, dizziness, shortness of breath, chest pain, abdominal pain, bleeding, fevers, or worsening of medical condition. Patient was counseled about treatment plan, medications, possible side effects, patientverbalized understanding. All questions were answered to the best of my ability. This discharge took greater then 30 minutes in planning, reviewing documentation, counseling the patient, and discussing with other team members." ASSESSMENT ASSESSMENT Assessment # Complicated Cystitis # DM2 A1c 7.2 # Constipation Date of Service: Feb 14, 2025 Billing Provider: CRISTOBAL MIRANDA MD Common Visit Codes: 97347-RKM/OBS DISCH DAY >30min ROCÍO ANTONIO RESIDENT Feb 14, 2025 08:56 CRISTOBAL MIRANDA MD Feb 22, 2025 19:00
[2025-02-14 09:00] VITALS: BP 138/86; PULSE 53; RESP 20; TEMP 98; O2SAT 98
[2025-02-14 09:19] VITALS: BP 128/70; PULSE 70; RESP 18; TEMP 98.7; O2SAT 97
== END 2025-02-14 09:55 | disposition home or self-care (01) | DRG 690 ==
LOC: ER 13:37 → OVERFLOW 20:03 → WEST WING 23:50
PROVIDERS: ADMIT Internal Medicine; ATTEND Internal Medicine
DX: N30.90 Cystitis, unspecified without hematuria (principal); E11.9 Type 2 diabetes mellitus without complications; K59.00 Constipation, unspecified; E78.5 Hyperlipidemia, unspecified; I10 Essential (primary) hypertension; Z88.5 Allergy status to narcotic agent; Z88.1 Allergy status to other antibiotic agents; Z90.49 Acquired absence of other specified parts of digestive tract
CPT/HCPCS: 36415; 74176; 80048; 81001; 82962; 83735; 85025; G0378; J1815

== ENCOUNTER → 2025-04-15 | Outpatient (CLI) | payer OTHER ==
[~2025-04-15] MED LIST changes: -ADENOSINE 59 MG in GIVE UN-DILUTED 0 ML IV ONE; +IBUP1TAB5 PO; +NITR-87 PO; +PANT40TA2 PO
[2025-04-15 12:56] LABS: Urine Protein, UAD TRACE (Negative)
[2025-04-15 14:09] LABS: Alanine Aminotransferase 37 U/L (7-40); Alkaline Phosphatase 96 U/L (46-116); Anion Gap 12 (5-15); BUN/Creatinine Ratio 16.9 (10.0-20.0); Blood Urea Nitrogen 14 mg/dL (9-23); Calcium 9.9 mg/dL (8.7-10.4); Carbon Dioxide 27 mmol/L (20-31); Chloride 106 mmol/L (98-107); Potassium 4.5 mmol/L (3.5-5.1); Total Protein 8.0 g/dL (5.7-8.2)
[2025-04-15 14:10] LABS: Albumin 4.9 g/dL (3.2-4.8); Bilirubin, Total 1.0 mg/dL (0.2-1.0); Cholesterol 200 mg/dL (< 200); Glucose 128 mg/dL (74-106); HDL Cholesterol 35 mg/dL (40-59); Sodium 145 mmol/L (136-145); Triglycerides 221 mg/dL (< 150)
[2025-04-15 14:11] LABS: Microalb/Creat Ratio, Urine 14.0
== END | disposition home or self-care (01) ==
LOC: LAB 12:04
PROVIDERS: ATTEND Nurse Practitioner Family
DX: I12.9 Hypertensive chronic kidney disease with stage 1 through stage 4 chronic kidney disease, or unspecified chronic kidney disease (principal); E11.22 Type 2 diabetes mellitus with diabetic chronic kidney disease; N18.9 Chronic kidney disease, unspecified; E03.9 Hypothyroidism, unspecified; E55.9 Vitamin D deficiency, unspecified; N39.0 Urinary tract infection, site not specified; Z11.3 Encounter for screening for infections with a predominantly sexual mode of transmission
CPT/HCPCS: 36415; 80053; 80061; 81001; 82043; 82306; 82570; 83036; 84439; 84443; 87086